=== PATIENT | female | born 1970 | race American Indian/Alaskan Native ===

== ENCOUNTER 2018-09-01 12:58 | Emergency (ER) | payer BC ==
[2018-09-01 13:06] VITALS: BP 163/114
[2018-09-01] MEDS ORDERED: IBUPROFEN PO ONE (14:34)
--- NOTE | 2018-09-01 15:21 | Emergency Department Report ---
ED Female HPI - General Chief complaint: Back Pain/Injury Stated complaint: BACK PAIN Time Seen by Provider: 09/01/18 14:33 Source: patient Mode of arrival: Ambulatory Limitations: No Limitations - History of Present Illness Initial comments: This is a 47-year-old female presents to ED complaining of right-sided flank pain that began yesterday. Patient has been experiencing pressure-like feeling whenever she urinates. Patient denies vaginal bleed, traumatic injury to the back or abdomen, fever, chills, nausea vomiting.. - Related Data Previous Rx's Medication Instructions Recorded Last Taken Type Ibuprofen [Motrin 800 MG tab] 800 mg PO TID #15 tablet 09/01/18 Unknown Rx Phenazopyridine [Pyridium] 100 mg PO TID #10 tab 09/01/18 Unknown Rx Sulfamethoxazole/Trimethoprim 1 each PO BID #14 tablet 09/01/18 Unknown Rx [Bactrim DS TAB] Butalb/Acetamin/Caff 50-325-40 1 - 2 tab PO Q4H PRN #15 tablet 09/04/18 Unknown Rx [Fioricet 50-325-40] Ondansetron [Zofran Odt] 4 mg PO Q6HR #20 tab.rapdis 09/04/18 Unknown Rx cephALEXin [Keflex] 500 mg PO Q6HR #40 capsule 09/04/18 Unknown Rx Allergies Allergy/AdvReac Type Severity Reaction Status Date / Time No Known Allergies Allergy Unverified 09/01/18 12:59 ED Review of Systems ROS: Stated complaint: BACK PAIN Other details as noted in HPI Comment: All other systems reviewed and negative ED Past Medical Hx - Past Medical History Previous Medical History?: No - Surgical History Hx Cholecystectomy: Yes Hx Breast Surgery: Yes (reduction) Additional Surgical History: hyst - Social History Smoking Status: Never Smoker Substance Use Type: None - Medications Home Medications: Home Medications Medication Instructions Recorded Confirmed Last Taken Type Ibuprofen [Motrin 800 MG tab] 800 mg PO TID #15 tablet 09/01/18 Unknown Rx Phenazopyridine [Pyridium] 100 mg PO TID #10 tab 09/01/18 Unknown Rx Sulfamethoxazole/Trimethoprim 1 each PO BID #14 tablet 09/01/18 Unknown Rx [Bactrim DS TAB] Butalb/Acetamin/Caff 50-325-40 1 - 2 tab PO Q4H PRN #15 tablet 09/04/18 Unknown Rx [Fioricet 50-325-40] Ondansetron [Zofran Odt] 4 mg PO Q6HR #20 tab.rapdis 09/04/18 Unknown Rx cephALEXin [Keflex] 500 mg PO Q6HR #40 capsule 09/04/18 Unknown Rx ED Physical Exam - General Limitations: No Limitations General appearance: alert, in no apparent distress - Head Head exam: Present: atraumatic, normocephalic - Eye Eye exam: Present: normal appearance - ENT ENT exam: Present: mucous membranes moist - Neck Neck exam: Present: normal inspection - Respiratory Respiratory exam: Present: normal lung sounds bilaterally. Absent: respiratory distress - Cardiovascular Cardiovascular Exam: Present: regular rate, normal rhythm. Absent: systolic murmur, diastolic murmur, rubs, gallop - GI/Abdominal GI/Abdominal exam: Present: soft, normal bowel sounds. Absent: distended, tenderness - Extremities Exam Extremities exam: Present: normal inspection - Back Exam Back exam: Present: normal inspection, full ROM. Absent: tenderness, CVA tenderness (R), CVA tenderness (L) - Neurological Exam Neurological exam: Present: alert, oriented X3, normal gait - Psychiatric Psychiatric exam: Present: normal affect, normal mood - Skin Skin exam: Present: warm, dry, intact, normal color. Absent: rash ED Course Vital Signs 09/01/18 13:05 Temperature 97.9 F Pulse Rate 82 Respiratory 18 Rate Blood Pressure 163/114 O2 Sat by Pulse 99 Oximetry ED Medical Decision Making - Medical Decision Making 47-year-old female presents with flank pain Urinalysis shows elevated WBC, trace leukocytes Discussed findings with the patient. Patient will be treated for UTI. Antibiotics given a patient at discharge. Discussed the patient to follow up with primary care physician in 3-5 days. Vital signs are normal patient is in no acute distress Critical care attestation.: If time is entered above; I have spent that time in minutes in the direct care of this critically ill patient, excluding procedure time. ED Disposition Clinical Impression: Flank pain, Dysuria Disposition: DC-01 TO HOME OR SELFCARE Is pt being admited?: No Does the pt Need Aspirin: No Condition: Stable Instructions: Urinary Tract Infection in Women (ED), Dysuria (ED) Additional Instructions: Make sure to follow up with the primary care physician as discussed. Take all your medications as you've been prescribed. If you have any worsening symptoms or develop new symptoms please return to ED immediately. Prescriptions: Sulfamethoxazole/Trimethoprim [Bactrim DS TAB] 1 each PO BID #14 tablet Ibuprofen [Motrin 800 MG tab] 800 mg PO TID #15 tablet Phenazopyridine [Pyridium] 100 mg PO TID #10 tab Referrals: SEBASTIAN KEE MD [Primary Care Provider] - 3-5 Days TYLER OAKLEY MD [Referring] - 3-5 Days [facility] [Provider Group] - 3-5 Days Forms: Work/School Release Form Time of Disposition: 16:10
[2018-09-01 15:42] LABS: Bilirubin,Urine NEG (Negative); Blood,Urine LG (Negative); Color,Urine Amber (Yellow); Mucus,Urine 1+ /HPF; Urobilinogen,Urine < 2.0 mg/dL (<2.0)
== END 2018-09-01 16:47 | disposition home or self-care (01) ==
LOC: ED 12:58
DX: R10.9 Unspecified abdominal pain (principal); R30.0 Dysuria; Z90.49 Acquired absence of other specified parts of digestive tract; Z90.710 Acquired absence of both cervix and uterus
CPT/HCPCS: 81001; 99283

== ENCOUNTER 2018-09-03 21:37 | Emergency (ER) | payer BC ==
--- NOTE | 2018-09-03 21:53 | Event Note ---
ED Screening Note ED Screening Note: pt is c/o frontal WESLEY that began yesterday states she also has eye redness states that it began after taking bactrim and pyridium for UTI began taking the medication yesterday no fever no PMHx no allergies to medications non smoker non drinker no drug use This initial assessment/diagnostic orders/clinical plan/treatment(s) is/are subject to change based on patients health status, clinical progression and re- assessment by fellow clinical providers in the ED. Further treatment and workup at subsequent clinical providers discretion. Patient/guardian urged not to elope from the ED as their condition may be serious if not clinically assessed and managed.
[2018-09-03] MEDS ORDERED: TORADOL IV ONE (22:20)
[2018-09-03] MEDS ORDERED: REGLAN IV ONE (22:20)
[2018-09-03] MEDS ORDERED: NACL 0.9% 1000 ML 1,000 ML IV ONE (22:20)
[2018-09-03] MEDS ORDERED: BENADRYL IV ONE (22:20)
[2018-09-03] MEDS ORDERED: ROCEPHIN/NS 1 GM/50 ML 1 GM/50 ML BAG IV ONE (22:21)
[2018-09-03 22:52] LABS: Basophils % (Auto) 0.4 % (0.0-1.8); Eosinophils # (Auto) 0.2 K/mm3 (0.0-0.4); Eosinophils % (Auto) 3.3 % (0.0-4.3); Hematocrit 38.7 % (30.3-42.9); Hemoglobin 13.2 gm/dl (10.1-14.3); Lymphocytes # (Auto) 0.5 K/mm3 (1.2-5.4); Lymphocytes % (Auto) 7.6 % (13.4-35.0); Mean Corpuscular HGB Conc 34 % (30-34); Mean Corpuscular Volume 84 fl (79-97); Monocytes # (Auto) 0.4 K/mm3 (0.0-0.8); Monocytes % (Auto) 6.1 % (0.0-7.3); Platelet Count 219 K/mm3 (140-440); Red Blood Count 4.62 M/mm3 (3.65-5.03); Red Cell Distribution Width 14.3 % (13.2-15.2)
[2018-09-03 23:05] LABS: Albumin 3.9 g/dL (3.9-5); Calcium 9.5 mg/dL (8.4-10.2)
[2018-09-04 00:41] LABS: HCG Qualitative,Urine Negative (Negative)
[2018-09-04 00:43] LABS: Bacteria,Urine 1+ /HPF (Negative); Bilirubin,Urine NEG (Negative); Blood,Urine NEG (Negative); Color,Urine Amber (Yellow); Mucus,Urine 1+ /HPF; Protein,Urine <15 mg/dL mg/dL (Negative)
--- NOTE | 2018-09-04 01:25 | Emergency Department Report ---
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 Patient states that in the last 12 hours her symptoms have worsened and that she also had nausea but no vomiting. Patient states that she had been taking Bactrim DS and Pyridium for a recently diagnosed acute urinary tract infection. Patient states that she thought that she was having allergic reaction to the medications and so she stopped taking them. Patient denies fever, abdominal pain, diarrhea, vomiting, chest pain, shortness of breath, dysuria, change in vision, shortness of breath or sore throat. MD Complaint: Headache, weakness and fatigue with chills -: Sudden, days(s) (2) Location: head Radiation: non-radiation Severity scale (0 -10): 7 Quality: aching, sharp Consistency: constant Improves with: none Worsens with: none Associated Symptoms: denies other symptoms, fever/chills, headaches, loss of appetite, malaise, nausea/vomiting, weakness. denies: confusion, chest pain, cough, diaphoresis, rash, seizure, shortness of breath, syncope Treatments Prior to Arrival: none - Related Data Previous Rx's Medication Instructions Recorded Last Taken Type Ibuprofen [Motrin 800 MG tab] 800 mg PO TID #15 tablet 09/01/18 Unknown Rx Phenazopyridine [Pyridium] 100 mg PO TID #10 tab 09/01/18 Unknown Rx Sulfamethoxazole/Trimethoprim 1 each PO BID #14 tablet 09/01/18 Unknown Rx [Bactrim DS TAB] Ondansetron [Zofran Odt] 4 mg PO Q6HR #20 tab.rapdis 09/04/18 Unknown Rx cephALEXin [Keflex] 500 mg PO Q6HR #40 capsule 09/04/18 Unknown Rx Allergies Allergy/AdvReac Type Severity Reaction Status Date / Time No Known Allergies Allergy Unverified 09/01/18 12:59 ED Review of Systems ROS: Stated complaint: WESLEY/BODY CHILLS Other details as noted in HPI Comment: All other systems reviewed and negative Constitutional: chills, malaise, weakness. denies: fever Eyes: denies: eye pain, eye discharge, vision change ENT: denies: ear pain, throat pain Respiratory: denies: cough, shortness of breath, wheezing Cardiovascular: denies: chest pain, palpitations Endocrine: no symptoms reported Gastrointestinal: nausea. denies: abdominal pain, vomiting, diarrhea, hematochezia Genitourinary: denies: urgency, dysuria, frequency, discharge, dyspareunia Musculoskeletal: arthralgia, myalgia. denies: back pain, joint swelling Skin: denies: rash, lesions Neurological: denies: headache, weakness, paresthesias Psychiatric: denies: anxiety, depression Hematological/Lymphatic: denies: easy bleeding, easy bruising ED Past Medical Hx - Past Medical History Previous Medical History?: Yes Hx Hypertension: Yes - Surgical History Hx Cholecystectomy: Yes Hx Breast Surgery: Yes (reduction) Additional Surgical History: hyst - Social History Smoking Status: Never Smoker Substance Use Type: None - Medications Home Medications: Home Medications Medication Instructions Recorded Confirmed Last Taken Type Ibuprofen [Motrin 800 MG tab] 800 mg PO TID #15 tablet 09/01/18 Unknown Rx Phenazopyridine [Pyridium] 100 mg PO TID #10 tab 09/01/18 Unknown Rx Sulfamethoxazole/Trimethoprim 1 each PO BID #14 tablet 09/01/18 Unknown Rx [Bactrim DS TAB] Ondansetron [Zofran Odt] 4 mg PO Q6HR #20 tab.rapdis 09/04/18 Unknown Rx cephALEXin [Keflex] 500 mg PO Q6HR #40 capsule 09/04/18 Unknown Rx ED Physical Exam - General Limitations: No Limitations General appearance: alert, in no apparent distress - Head Head exam: Present: atraumatic, normocephalic, normal inspection - Eye Eye exam: Present: normal appearance, PERRL, EOMI Pupils: Present: normal accommodation - ENT ENT exam: Present: normal exam, normal orophraynx, mucous membranes moist, TM's normal bilaterally, normal external ear exam - Neck Neck exam: Present: normal inspection, full ROM. Absent: tenderness - Respiratory Respiratory exam: Present: normal lung sounds bilaterally. Absent: respiratory distress, wheezes, rhonchi, chest wall tenderness - Cardiovascular Cardiovascular Exam: Present: regular rate, tachycardia, normal heart sounds. Absent: systolic murmur, diastolic murmur, rubs, gallop - GI/Abdominal GI/Abdominal exam: Present: soft, normal bowel sounds. Absent: tenderness, guarding, rebound, hyperactive bowel sounds, hypoactive bowel sounds, organomegaly - Extremities Exam Extremities exam: Present: normal inspection, full ROM, normal capillary refill - Back Exam Back exam: Present: normal inspection. Absent: full ROM, tenderness, CVA tenderness (R), CVA tenderness (L), muscle spasm, paraspinal tenderness, vertebral tenderness - Neurological Exam Neurological exam: Present: alert, oriented X3, CN II-XII intact, normal gait, reflexes normal - Psychiatric Psychiatric exam: Present: normal affect, normal mood - Skin Skin exam: Present: warm, dry, intact, normal color. Absent: rash ED Course Vital Signs 09/03/18 09/03/18 21:44 23:22 Temperature 98.6 F Pulse Rate 101 H Respiratory 20 18 Rate Blood Pressure 117/84 O2 Sat by Pulse 100 Oximetry - Reevaluation(s) Reevaluation #1: 09/04/18 01:34 Patient is alert and oriented 3 and sinus and distress. Labs were drawn including urinalysis. Patient was treated with normal saline 1 L IV as well as, Rocephin 1 g IV, and pain medications. Lab tests results were reviewed and showed acute urinary tract infection. It is a lot as a results were unr emarkable. On reevaluation, patient felt better after the treatment and was discharged home on medications. Patient was given a meal prescription of antibiotic, Keflex and advised to stop taking the Bactrim DS that she had started taking, and to complete taking the Keflex for 10 days. Patient advised to return to the ED immediately if symptoms get worse. Patient was otherwise advised to follow up with her primary care physician E7 to 10 days for reevaluation. ED Medical Decision Making - Lab Data Result diagrams: 09/03/18 22:31 09/03/18 22:31 - Medical Decision Making Patient is alert and oriented 3 and sinus and distress. Labs were drawn including urinalysis. Patient was treated with normal saline 1 L IV as well as, Rocephin 1 g IV, and pain medications. Lab tests results were reviewed and showed acute urinary tract infection. It is a lot as a results were unremarkable. On reevaluation, patient felt better after the treatment and was discharged home on medications. Patient was given a meal prescription of antibiotic, Keflex and advised to stop taking the Bactrim DS that she had started taking, and to complete taking the Keflex for 10 days. Patient advised to return to the ED immediately if symptoms get worse. Patient was otherwise advised to follow up with her primary care physician E7 to 10 days for reevaluation - Differential Diagnosis Weakness, Acute UTI Critical care attestation.: If time is entered above; I have spent that time in minutes in the direct care of this critically ill patient, excluding procedure time. ED Disposition Clinical Impression: Acute urinary tract infection, Generalized weakness Disposition: TO HOME OR SELFCARE Is pt being admited?: No Does the pt Need Aspirin: No Condition: Stable Instructions: Urinary Tract Infection in Women (ED), Weakness (ED) Additional Instructions: Take medications with food, drink plenty of fluids and follow-up with your primary care physician as advised in 7-10 days. Return to the ED immediately if symptoms get worse. Prescriptions: cephALEXin [Keflex] 500 mg PO Q6HR #40 capsule Ondansetron [Zofran Odt] 4 mg PO Q6HR #20 tab.rapdis Referrals: NEFTALI LYNN MD [Primary Care Provider] - 3-5 Days Forms: Work/School Release Form(ED) Time of Disposition: 01:28 Print Language: DIVEHI
[2018-09-04 01:50] VITALS: BP 122/70
== END 2018-09-04 01:49 | disposition home or self-care (01) ==
LOC: ED 21:37
DX: N39.0 Urinary tract infection, site not specified (principal); I10 Essential (primary) hypertension
CPT/HCPCS: 36415; 80053; 81001; 81025; 85025; 96365; 96375; 99283; J0696; J1200; J1885; J2765; J7030

== ENCOUNTER 2018-09-15 03:30 | Emergency (ER) | payer BC ==
[2018-09-15] MEDS ORDERED: NACL 0.9% 1000 ML 1,000 ML ONE (04:04)
[2018-09-15 04:09] LABS: Basophils # (Auto) 0.2 K/mm3 (0.0-0.1); Basophils % (Auto) 2.4 % (0.0-1.8); Eosinophils # (Auto) 0.1 K/mm3 (0.0-0.4); Eosinophils % (Auto) 0.7 % (0.0-4.3); Hematocrit 37.8 % (30.3-42.9); Hemoglobin 12.6 gm/dl (10.1-14.3); Lymphocytes # (Auto) 3.5 K/mm3 (1.2-5.4); Lymphocytes % (Auto) 47.1 % (13.4-35.0); Mean Corpuscular HGB Conc 33 % (30-34); Mean Corpuscular Volume 84 fl (79-97); Monocytes # (Auto) 0.8 K/mm3 (0.0-0.8); Monocytes % (Auto) 10.8 % (0.0-7.3); Platelet Count 284 K/mm3 (140-440); Red Blood Count 4.49 M/mm3 (3.65-5.03); Red Cell Distribution Width 14.9 % (13.2-15.2)
[2018-09-15] MEDS ORDERED: NACL 0.9% 1000 ML 1,000 ML IV ONE ×2 (04:09)
--- NOTE | 2018-09-15 04:18 | Emergency Department Report ---
<WILDATASHI - Last Filed: 09/15/18 07:30> ED Syncope HPI - General Chief Complaint: Syncope Stated Complaint: FAINTED AT WORK Time Seen by Provider: 09/15/18 04:08 - Related Data Allergies/Adverse Reactions: Allergies No Known Allergies Allergy (Unverified 09/01/18 12:59) Home Medications: Ambulatory Orders Lisinopril [Zestril TAB] 40 mg PO QDAY 09/15/18 ED Past Medical Hx - Medications Home Medications: Home Medications Medication Instructions Recorded Confirmed Last Taken Type Lisinopril [Zestril TAB] 40 mg PO QDAY 09/15/18 09/15/18 09/14/18 History ED Medical Decision Making - Lab Data Result diagrams: 09/15/18 03:57 09/15/18 03:57 - Medical Decision Making Mrs. Lynch is a pleasant 47-year-old female with history of hypertension. She takes lisinopril and hydrochlorothiazide. She remembers being very hot at work. 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 She fainted at work. She did not have any preceding chest pain or shortness of breath. She did not have any palpitations. Once here in the ED she had mild shortness of breath with hypotension. I suspect hypovolemia dehydration with heat exhaustion in the setting of diuretic use. VQ scan was normal. No indication of pulmonary embolus. I strongly encouraged her to stop taking the hydrochlorothiazide with evidence of acute kidney injury. I strongly encouraged her to see her primary care provider Ms. Ram at [facility]. Discharged home in stable condition. Diagnosis syncope, dehydration, acute kidney injury, Repeat blood pressure 133/85 just prior to discharge ED Disposition Clinical Impression: Acute kidney injury, Dehydration, Syncope Disposition: DC-01 TO HOME OR SELFCARE Is pt being admited?: No Does the pt Need Aspirin: No Condition: Stable Instructions: Dehydration (ED), Syncope (ED) Additional Instructions: Please continue to take lisinopril. Please stop taking the water pill hydrochlorothiazide until you're seen by your primary care provider. Referrals: PRIMARY CARE, [Referring] - MIKEL Forms: Work/School Release Form(ED) <SUSHANT LAO - Last Filed: 09/17/18 09:21> ED Syncope HPI - History of Present Illness Initial Comments: 47-year-old female presents to the ED following a syncopal episode at work. Patient states she began to feel hot, dizzy and lightheaded. Patient then passed out. Patient believes the air conditioner stopped working. Reports mild shortness of breath. Denies chest pain, palpitations, vomiting, diarrhea, fever, or abdominal pain prior to syncopal episode. Patient reports she was feeling well earlier in the day. Patient has history of hypertension and takes lisinopril only. PCP: Del Harris Timing/Prior Episodes: single episode today Precipitating Factors: Positive: lightheadedness Context: standing Loss of Consciousness: brief (seconds) Current Symptoms: weakness. denies: chest pain, headache ED Review of Systems ROS: Stated complaint: FAINTED AT WORK Other details as noted in HPI Comment: All other systems reviewed and negative Constitutional: denies: chills, fever Respiratory: shortness of breath. denies: cough Cardiovascular: denies: chest pain Gastrointestinal: denies: abdominal pain, nausea, vomiting, diarrhea Neurological: weakness (generalized). denies: headache ED Past Medical Hx - Past Medical History Previous Medical History?: Yes Hx Hypertension: Yes - Surgical History Hx Cholecystectomy: Yes Hx Breast Surgery: Yes (reduction) Additional Surgical History: hyst - Social History Smoking Status: Never Smoker Substance Use Type: None ED Physical Exam - General Limitations: No Limitations General appearance: alert, in no apparent distress - Head Head exam: Present: atraumatic, normocephalic - Eye Eye exam: Present: normal appearance, PERRL, EOMI - ENT ENT exam: Present: mucous membranes moist - Neck Neck exam: Present: normal inspection - Respiratory Respiratory exam: Present: normal lung sounds bilaterally. Absent: respiratory distress - Cardiovascular Cardiovascular Exam: Present: regular rate, normal rhythm - GI/Abdominal GI/Abdominal exam: Present: soft. Absent: distended, tenderness - Extremities Exam Extremities exam: Present: normal inspection - Neurological Exam Neurological exam: Present: alert, oriented X3, CN II-XII intact. Absent: motor sensory deficit - Psychiatric Psychiatric exam: Present: normal affect, normal mood - Skin Skin exam: Present: warm, dry, intact, normal color ED Course Vital Signs 09/15/18 09/15/18 09/15/18 03:30 03:34 03:48 Temperature 97.3 F L 97.3 F L Pulse Rate 90 95 H Respiratory 18 18 Rate Blood Pressure 87/64 87/64 O2 Sat by Pulse 98 97 92 Oximetry 09/15/18 09/15/18 09/15/18 04:00 04:15 04:30 Temperature Pulse Rate 68 79 83 Respiratory 20 18 18 Rate Blood Pressure 93/60 95/61 95/61 O2 Sat by Pulse 90 100 99 Oximetry 09/15/18 09/15/18 09/15/18 04:45 05:00 05:15 Temperature Pulse Rate 86 82 80 Respiratory 18 15 16 Rate Blood Pressure 118/82 119/79 120/77 O2 Sat by Pulse 100 96 100 Oximetry 09/15/18 09/15/18 09/15/18 05:30 05:45 06:00 Temperature Pulse Rate 74 71 71 Respiratory 14 17 16 Rate Blood Pressure 115/79 119/79 136/92 O2 Sat by Pulse 100 100 100 Oximetry 09/15/18 09/15/18 06:15 07:30 Temperature Pulse Rate 84 81 Respiratory 15 16 Rate Blood Pressure 132/90 132/90 O2 Sat by Pulse 100 100 Oximetry ED Medical Decision Making - Lab Data Result diagrams: 09/15/18 03:57 09/15/18 03:57 - EKG Data -: EKG Interpreted by Sd EKG shows normal: sinus rhythm, axis, intervals, QRS complexes Rate: normal - EKG Data Interpretation: other (T wave inversion V2) - Radiology Data Radiology results: report reviewed, image reviewed - Differential Diagnosis dehydration, heat exhaustion, PE, ACS Critical care attestation.: If time is entered above; I have spent that time in minutes in the direct care of this critically ill patient, excluding procedure time.
--- NOTE | 2018-09-15 04:26 | XRay Report ---
PROCEDURE: XR CHEST 1V AP TECHNIQUE: Chest radiograph single view. HISTORY: Chest Pain COMPARISONS: None . FINDINGS: Heart: Normal. Mediastinum/Vessels: Normal. Lungs/Pleural space: Normal. Bony thorax: No acute osseous abnormality. Life support devices: None. IMPRESSION: No acute cardiopulmonary abnormality. This document is electronically signed by Ji Rand MD., September 15 2018 04:25:00 AM ET
[2018-09-15 04:30] LABS: BUN/Creatinine Ratio 12; Blood Urea Nitrogen 22 mg/dL (7-17); Calcium 9.6 mg/dL (8.4-10.2); Hemolysis Index 9
[2018-09-15 04:52] LABS: Alanine Aminotransferase 106 units/L (7-56)
[2018-09-15 05:29] LABS: Bilirubin,Direct < 0.2 mg/dL (0-0.2)
[2018-09-15 06:59] VITALS: BP 132/90
--- NOTE | 2018-09-15 07:18 | Nuclear Medicine Report ---
PROCEDURE: NM LUNG SCAN PERF/VENT TECHNIQUE: Ventilation and perfusion studies were performed. The patient was injected intravenously with 4.8 mCi of technetium 99m MAA. The ventilation portion of the study was administered using 21.2 mCi of xenon-133. HISTORY: sob, syncope, elevated d-dimer COMPARISONS: None FINDINGS: The ventilation is normal to both lungs. With washout there is no evidence of trapping of xenon. The perfusion images show homogeneous activity in both lungs. There are no segmental defects. IMPRESSION: Normal exam. No evidence of pulmonary embolus.. This document is electronically signed by Ji Rand MD., September 15 2018 07:16:52 AM ET
[2018-09-15] MEDS ORDERED: TYLENOL PO ONE (07:30)
== END 2018-09-15 07:55 | disposition home or self-care (01) ==
LOC: ED 03:30
DX: E86.0 Dehydration (principal); N17.9 Acute kidney failure, unspecified; I10 Essential (primary) hypertension; Z90.49 Acquired absence of other specified parts of digestive tract; Z90.710 Acquired absence of both cervix and uterus
CPT/HCPCS: 36415; 71045; 78582; 80048; 80076; 84484; 84702; 85025; 85379; 93005; 93010; 96360; 96361; 99284; A9540; A9558; J7030

== ENCOUNTER 2018-12-01 13:33 | Emergency (ER) | payer BC ==
--- NOTE | 2018-12-01 14:08 | Event Note ---
ED Screening Note Date of service: 12/01/18 Time: 14:05 ED Screening Note: 48 y o female presents with feelings of weakness and elevated BP hx of HTN This initial assessment/diagnostic orders/clinical plan/treatment(s) is/are subject to change based on patients health status, clinical progression and re- assessment by fellow clinical providers in the ED. Further treatment and workup at subsequent clinical providers discretion. Patient/guardian urged not to elope from the ED as their condition may be serious if not clinically assessed and managed. Initial orders include: labs ivf pain clonidine
[2018-12-01 14:36] LABS: Basophils # (Auto) 0.1 K/mm3 (0.0-0.1); Basophils % (Auto) 0.8 % (0.0-1.8); Eosinophils % (Auto) 0.3 % (0.0-4.3); Hematocrit 43.6 % (30.3-42.9); Hemoglobin 14.2 gm/dl (10.1-14.3); Lymphocytes # (Auto) 1.5 K/mm3 (1.2-5.4); Lymphocytes % (Auto) 18.9 % (13.4-35.0); Mean Corpuscular HGB Conc 33 % (30-34); Mean Corpuscular Volume 85 fl (79-97); Monocytes # (Auto) 0.6 K/mm3 (0.0-0.8); Monocytes % (Auto) 8.1 % (0.0-7.3); Platelet Count 269 K/mm3 (140-440); Red Blood Count 5.13 M/mm3 (3.65-5.03); Red Cell Distribution Width 14.6 % (13.2-15.2)
[2018-12-01 14:52] LABS: BUN/Creatinine Ratio 19; Blood Urea Nitrogen 17 mg/dL (7-17); Calcium 10.7 mg/dL (8.4-10.2); Hemolysis Index 14
[2018-12-01] MEDS ORDERED: CATAPRES PO ONE (17:45)
--- NOTE | 2018-12-01 17:54 | Emergency Department Report ---
ED General Adult HPI - General Chief complaint: Weakness Stated complaint: HBP Time Seen by Provider: 12/01/18 14:04 Source: patient Mode of arrival: Ambulatory Limitations: No Limitations - History of Present Illness Initial comments: This 48 y/ o female presents with feelings of generalized weakness and elevated BP , there is no sob no back pain no diaphoresis, hx of HTN controlled with lisinopril. Onset/Timin -: days(s) Location: upper extremity, lower extremity Radiation: non-radiation Severity scale (0 -10): 4 Quality: other (generalized weakness ) Consistency: constant Improves with: none Worsens with: movement, other (activity ) Associated Symptoms: malaise, weakness Treatments Prior to Arrival: none - Related Data Home Medications Medication Instructions Recorded Confirmed Last Taken Lisinopril [Zestril TAB] 40 mg PO QDAY 09/15/18 09/15/18 09/14/18 Previous Rx's Medication Instructions Recorded Last Taken Type Acetaminophen [Acetaminophen TAB] 1,000 mg PO Q6HR PRN #30 tablet 12/01/18 Unknown Rx Lisinopril [Zestril TAB] 40 mg PO QDAY #30 tablet 12/01/18 Unknown Rx amLODIPine [Norvasc] 5 mg PO DAILY #30 tab 12/01/18 Unknown Rx diphenhydrAMINE [Benadryl CAP] 25 mg PO Q8HR PRN #30 capsule 12/01/18 Unknown Rx Allergies Allergy/AdvReac Type Severity Reaction Status Date / Time No Known Allergies Allergy Unverified 09/01/18 12:59 ED Review of Systems ROS: Stated complaint: HBP Other details as noted in HPI Constitutional: malaise Eyes: denies: eye pain, eye discharge, vision change ENT: denies: ear pain, throat pain Respiratory: denies: cough, shortness of breath, wheezing Cardiovascular: denies: chest pain, palpitations Endocrine: no symptoms reported Gastrointestinal: denies: abdominal pain, nausea, diarrhea Genitourinary: denies: urgency, dysuria, discharge Musculoskeletal: denies: back pain, joint swelling, arthralgia, myalgia Skin: as per HPI Neurological: headache (left frontal ). denies: weakness, numbness, paresthesias, confusion, abnormal gait, vertigo Psychiatric: denies: anxiety, depression Hematological/Lymphatic: denies: easy bleeding, easy bruising ED Past Medical Hx - Past Medical History Previous Medical History?: Yes Hx Hypertension: Yes - Surgical History Past Surgical History?: Yes Hx Cholecystectomy: Yes Hx Breast Surgery: Yes (reduction) Additional Surgical History: hyst - Social History Smoking Status: Never Smoker Substance Use Type: None - Medications Home Medications: Home Medications Medication Instructions Recorded Confirmed Last Taken Type Lisinopril [Zestril TAB] 40 mg PO QDAY 09/15/18 09/15/18 09/14/18 History Acetaminophen [Acetaminophen TAB] 1,000 mg PO Q6HR PRN #30 tablet 12/01/18 Unk nown Rx Lisinopril [Zestril TAB] 40 mg PO QDAY #30 tablet 12/01/18 Unknown Rx amLODIPine [Norvasc] 5 mg PO DAILY #30 tab 12/01/18 Unknown Rx diphenhydrAMINE [Benadryl CAP] 25 mg PO Q8HR PRN #30 capsule 12/01/18 Unknown Rx ED Physical Exam - General Limitations: No Limitations General appearance: alert, in no apparent distress - Head Head exam: Present: atraumatic, normocephalic - Eye Eye exam: Present: normal appearance, PERRL, EOMI Pupils: Present: normal accommodation - ENT ENT exam: Present: mucous membranes moist - Neck Neck exam: Present: normal inspection, full ROM. Absent: tenderness, lymphadenopathy - Respiratory Respiratory exam: Present: normal lung sounds bilaterally. Absent: respiratory distress, wheezes, stridor, chest wall tenderness - Cardiovascular Cardiovascular Exam: Present: regular rate, normal rhythm, normal heart sounds. Absent: systolic murmur, diastolic murmur, rubs, gallop - GI/Abdominal GI/Abdominal exam: Present: soft, normal bowel sounds. Absent: distended, tenderness, guarding, rebound, rigid, bruit, hernia - Rectal Rectal exam: Present: deferred - Extremities Exam Extremities exam: Present: normal inspection, full ROM, normal capillary refill. Absent: tenderness, pedal edema, joint swelling - Back Exam Back exam: Present: normal inspection, full ROM. Absent: tenderness, CVA tenderness (R), CVA tenderness (L), muscle spasm, paraspinal tenderness, rash noted - Neurological Exam Neurological exam: Present: alert, oriented X3, CN II-XII intact, normal gait, reflexes normal. Absent: motor sensory deficit - Psychiatric Psychiatric exam: Present: normal affect, normal mood - Skin Skin exam: Present: warm, dry, intact, normal color. Absent: rash ED Course Vital Signs 12/01/18 12/01/18 12/01/18 14:04 17:47 17:58 Temperature 98.0 F 97.4 F L Pulse Rate 82 80 80 Respiratory 20 16 Rate Blood Pressure 183/112 163/108 163/108 Blood Pressure [Left] O2 Sat by Pulse 97 98 Oximetry 12/01/18 12/01/18 17:59 20:58 Temperature 97.2 F L Pulse Rate 80 Respiratory 16 16 Rate Blood Pressure Blood Pressure 122/85 [Left] O2 Sat by Pulse 97 Oximetry ED Medical Decision Making - Lab Data Result diagrams: 12/01/18 14:24 12/01/18 14:24 Labs 12/01/18 12/01/18 12/01/18 14:24 14:24 14:24 WBC 7.8 RBC 5.13 H Hgb 14.2 Hct 43.6 H MCV 85 MCH 28 MCHC 33 RDW 14.6 Plt Count 269 Lymph % (Auto) 18.9 Greer % (Auto) 8.1 H Eos % (Auto) 0.3 Baso % (Auto) 0.8 Lymph # 1.5 Greer # 0.6 Eos # 0.0 Baso # 0.1 Seg Neutrophils % 71.9 H Seg Neutrophils # 5.6 Sodium 144 Potassium 4.6 Chloride 103.0 Carbon Dioxide 28 Anion Gap 18 BUN 17 Creatinine 0.9 Estimated GFR > 60 BUN/Creatinine Ratio 19 Glucose 117 H Calcium 10.7 H Lactate Dehydrogenase 185 H Total Creatine Kinase 100 Troponin T < 0.010 12/01/18 18:32 WBC RBC Hgb Hct MCV MCH MCHC RDW Plt Count Lymph % (Auto) Greer % (Auto) Eos % (Auto) Baso % (Auto) Lymph # Greer # Eos # Baso # Seg Neutrophils % Seg Neutrophils # Sodium Potassium Chloride Carbon Dioxide Anion Gap BUN Creatinine Estimated GFR BUN/Creatinine Ratio Glucose Calcium Lactate Dehydrogenase Total Creatine Kinase Troponin T < 0.010 - EKG Data EKG shows normal: sinus rhythm, axis, intervals, QRS complexes Rate: normal - EKG Data When compared to previous EKG there are: previous EKG unavailable Interpretation: nonspecific ST-T wave blade (EKG interp by ed attending NSR with nonspecific T wave abnormality ) - Radiology Data Radiology results: report reviewed, image reviewed Ordering Physician: JAS SHRESTHA NP Date of Service: 12/01/18 Procedure(s): CT head/brain w con Accession Number(s): [id number] cc: JAS SHRESTHA NP CT HEAD WITHOUT CONTRAST INDICATION / CLINICAL INFORMATION: weakness. TECHNIQUE: All CT scans at this location are performed using CT dose reduction for ALARA by means of automated exposure control. COMPARISON: None available. FINDINGS: HEMORRHAGE: No evidence of intracranial hemorrhage or extra-axial fluid collection. EXTRA-AXIAL SPACES: Cortical sulci, sylvian fissures and basilar cisterns have an unremarkable appearance. VENTRICULAR SYSTEM: The ventricular system is of normal size and configuration. CEREBRAL PARENCHYMA: No areas of abnormal brain parenchymal attenuation are identified. There is no indication of recent infarction. MIDLINE SHIFT OR HERNIATION: There is no mass effect. CEREBELLUM / BRAINSTEM: Brainstem and cerebellum have an unremarkable appearance. INTRACRANIAL VESSELS:No abnormalities are identified on this noncontrast head CT. ORBITS: The orbits are incompletely evaluated but are remarkable for the presence of a 9 mm mass situated in the intraconal space in the left orbit located between the lateral rectus muscle and the optic nerve. Differential diagnosis lies primarily between cavernous malformation and pleomorphic adenoma. Further evaluation is advised.. SOFT TISSUES of HEAD: No significant abnormality. CALVARIUM: Evaluation of bone windows reveals no abnormalities. PARANASAL SINUSES / MASTOID AIR CELLS: Paranasal sinuses are free from infla mmatory mucosal disease. Mastoid air cells are normally pneumatized. IMPRESSION: 1. No acute intracranial abnormality. 2. 9 mm diameter intraorbital mass lesion on the left as described above. Signer Name: Ishmael Thacker MD Signed: 12/01/2018 8:06 PM Workstation Name: [id number] Transcribed By: Dictated By: Ishmael Thacker MD Electronically Authenticated By: Ishmael Thacker MD Signed Date/Time: 12/01/182005 DD/ 58 TD/TT: Ordering Physician: JAS SHRESTHA NP Date of Service: 12/01/18 Procedure(s): XR chest routine 2V Accession Number(s): [id number] cc: JAS SHRESTHA NP Fluoro Time In Minutes: CHEST 2 VIEWS INDICATION / CLINICAL INFORMATION: weakness. COMPARISON: 09/15/2018 FINDINGS: SUPPORT DEVICES: None. HEART / MEDIASTINUM: No significant abnormality. LUNGS / PLEURA: No significant pulmonary or pleural abnormality. No pneumothorax. ADDITIONAL FINDINGS: No significant additional findings. IMPRESSION: No significant abnormality or interval change from 09/15/2018 Signer Name: Kristopher Hess MD FACR Signed: 12/01/2018 6:05 PM Workstation Name: [id number] Transcribed By: MS Dictated By: Kristopher Hess MD Electronically Authenticated By: Kristopher Hess MD Signed Date/Time: 12/01/181804 DD/ 03 TD/TT: - Medical Decision Making left orbital mass 9mm, no eye entrapment visual acuity 20/40 bilat, perrla eomi, conjunctivae clear bilat, no swelling, pt declines banks lamp or tonopen exam deferrs to ophthlamology, plan, follow up with ophthalmology in 2-3 days, pcp in 2-3 days given referral to [facility]. for pcp affiliation pt dc'd to self in stable condition at this time. Critical care attestation.: If time is entered above; I have spent that time in minutes in the direct care of this critically ill patient, excluding procedure time. ED Disposition Clinical Impression: Mass of eye, left HTN (hypertension) Qualifiers: Hypertension type: essential hypertension Qualified Code(s): I10 - Essential (primary) hypertension Disposition: DC-01 TO HOME OR SELFCARE Is pt being admited?: No Does the pt Need Aspirin: No Condition: Stable Instructions: Hypertension (ED), Eye Pain (ED), Acute Headache (ED) Prescriptions: Acetaminophen [Acetaminophen TAB] 1,000 mg PO Q6HR PRN #30 tablet PRN Reason: Headache diphenhydrAMINE [Benadryl CAP] 25 mg PO Q8HR PRN #30 capsule PRN Reason: Headache amLODIPine [Norvasc] 5 mg PO DAILY #30 tab Lisinopril [Zestril TAB] 40 mg PO QDAY #30 tablet Referrals: JOSHUA MAGDALENO MD [Staff Physician] - 3-5 Days [facility] [Provider Group] - 3-5 Days Forms: Work/School Release Form(ED) Time of Disposition: 21:25
--- NOTE | 2018-12-01 18:09 | XRay Report ---
CHEST 2 VIEWS INDICATION / CLINICAL INFORMATION: weakness. COMPARISON: 09/15/2018 FINDINGS: SUPPORT DEVICES: None. HEART / MEDIASTINUM: No significant abnormality. LUNGS / PLEURA: No significant pulmonary or pleural abnormality. No pneumothorax. ADDITIONAL FINDINGS: No significant additional findings. IMPRESSION: No significant abnormality or interval change from 09/15/2018 Signer Name: Kristopher Hess MD FACR Signed: 12/01/2018 6:05 PM Workstation Name: [id number]
--- NOTE | 2018-12-01 20:11 | Cat Scan Report ---
CT HEAD WITHOUT CONTRAST INDICATION / CLINICAL INFORMATION: weakness. TECHNIQUE: All CT scans at this location are performed using CT dose reduction for ALARA by means of automated e xposure control. COMPARISON: None available. FINDINGS: HEMORRHAGE: No evidence of intracranial hemorrhage or extra-axial fluid collection. EXTRA-AXIAL SPACES: Cortical sulci, sylvian fissures and basilar cisterns have an unremarkable appear ance. VENTRICULAR SYSTEM: The ventricular system is of normal size and configuration. CEREBRAL PARENCHYMA: No areas of abnormal brain parenchymal attenuation are identified. There is no i ndication of recent infarction. MIDLINE SHIFT OR HERNIATION: There is no mass effect. CEREBELLUM / BRAINSTEM: Brainstem and cerebellum have an unremarkable appearance. INTRACRANIAL VESSELS:No abnormalities are identified on this noncontrast head CT. ORBITS: The orbits are incompletely evaluated but are remarkable for the presence of a 9 mm mass situ ated in the intraconal space in the left orbit located between the lateral rectus muscle and the opti c nerve. Differential diagnosis lies primarily between cavernous malformation and pleomorphic adenoma . Further evaluation is advised.. SOFT TISSUES of HEAD: No significant abnormality. CALVARIUM: Evaluation of bone windows reveals no abnormalities. PARANASAL SINUSES / MASTOID AIR CELLS: Paranasal sinuses are free from inflammatory mucosal disease. Mastoid air cells are normally pneumatized. IMPRESSION: 1. No acute intracranial abnormality. 2. 9 mm diameter intraorbital mass lesion on the left as described above. Signer Name: Ishmael Thacker MD Signed: 12/01/2018 8:06 PM Workstation Name: [id number]
[2018-12-01 20:59] VITALS: BP 122/85
[2018-12-01] MEDS ORDERED: FUL-GLO OP ONE (20:59)
[2018-12-01] MEDS ORDERED: TETRACAINE 0.5% OU ONE (21:09)
== END 2018-12-01 21:20 | disposition home or self-care (01) ==
LOC: ED 13:33
DX: I10 Essential (primary) hypertension (principal); H57.9 Unspecified disorder of eye and adnexa; Z98.890 Other specified postprocedural states; Z90.49 Acquired absence of other specified parts of digestive tract; Z90.710 Acquired absence of both cervix and uterus; Z79.899 Other long term (current) drug therapy
CPT/HCPCS: 36415; 70460; 71046; 80048; 82550; 83615; 84484; 85025; 93005; 93010; 99284

== ENCOUNTER 2019-09-04 08:52 | Emergency (ER) | payer BC ==
[2019-09-04 10:28] LABS: Basophils # (Auto) 0.1 K/mm3 (0.0-0.1); Basophils % (Auto) 0.6 % (0.0-1.8); Eosinophils % (Auto) 0.3 % (0.0-4.3); Hematocrit 43.1 % (30.3-42.9); Lymphocytes # (Auto) 1.4 K/mm3 (1.2-5.4); Lymphocytes % (Auto) 15.7 % (13.4-35.0); Mean Corpuscular HGB Conc 33 % (30-34); Mean Corpuscular Volume 86 fl (79-97); Monocytes # (Auto) 0.6 K/mm3 (0.0-0.8); Monocytes % (Auto) 7.4 % (0.0-7.3); Platelet Count 222 K/mm3 (140-440); Red Blood Count 5.04 M/mm3 (3.65-5.03); Red Cell Distribution Width 15.4 % (13.2-15.2)
[2019-09-04 10:41] LABS: BUN/Creatinine Ratio 22; Blood Urea Nitrogen 37 mg/dL (7-17); Calcium 10.1 mg/dL (8.4-10.2); Hemolysis Index 9
[2019-09-04 21:19] VITALS: BP 120/70
== END 2019-09-04 21:17 | disposition home or self-care (01) ==
LOC: ED 08:52
DX: T67.5XXA Heat exhaustion, unspecified, initial encounter (principal); R42 Dizziness and giddiness; R11.2 Nausea with vomiting, unspecified; I10 Essential (primary) hypertension; Z79.899 Other long term (current) drug therapy; Z90.49 Acquired absence of other specified parts of digestive tract; Z98.890 Other specified postprocedural states; X58.XXXA Exposure to other specified factors, initial encounter; Y93.89 Activity, other specified; Y92.89 Other specified places as the place of occurrence of the external cause; Y99.8 Other external cause status
CPT/HCPCS: 36415; 71045; 80048; 82550; 82962; 84484; 85025; 93005; 96361; 96374; 99284; J2405; J7030